=== PATIENT | female | born 1950 | race Caucasian/White ===

== ENCOUNTER → 2020-02-16 | Outpatient (CLI) | payer BC, MEDICARE, SELFPAY ==
--- NOTE | 2020-02-16 16:56 | REP ---
HISTORY: Shoulder pain. COMPARISON: None. There is a mottled/permeative appearance to the proximal humerus. Chronic changes seen involving the glenohumeral and acromioclavicular joints. IMPRESSION: Permeative type appearance to the proximal humerus. Etiology uncertain. Pre- and post gadolinium enhanced MRI examination to include at least all of the mid to proximal left humerus is recommended. Electronically Signed by Silver Curry DO 02/16/2020 05:38 P
== END ==
LOC: M WUC 12:18
PROVIDERS: ATTEND Nurse Practitioner Adult Health
DX: M75.92 Shoulder lesion, unspecified, left shoulder (principal)

== ENCOUNTER → 2021-09-13 | Outpatient (CLI) | payer MEDICARE ==
[~2021-09-13] MED LIST: ACET1TAB55 PO; PROAAER10 INH; VITMTA PO
== END ==
LOC: M LABSMTC 09:58
PROVIDERS: ATTEND Anesthesiology
DX: Z01.812 Encounter for preprocedural laboratory examination (principal); Z20.822 Contact with and (suspected) exposure to COVID-19

== ENCOUNTER 2021-09-18 11:23 | Day surgery (SDC) | payer MEDICARE ==
[~2021-09-18] VITALS: Ht 154.9 cm; Wt 54.5 kg
[~2021-09-18 11:23] MED LIST changes: +CYCLOPENTOLATE 1% OPHTH SOLN 2 ML BTL OD SCH; +DUOVISC (0.50ML VISCOAT/0.85ML PROVISC) OPHTH KIT As Ordered ONE; +FLURBIPROFEN 0.03% OPHTH SOLN 2.5 ML OD SCH; +LIDOCAINE 1% SDV 5ML VIAL As Ordered ONE; +LR 1,000 ML IV SCH; +MAXITROL OPHTH SUSP 5 ML As Ordered ONE; +MIDAZOLAM INJ 2MG/2ML VIAL (J2250 PER 1MG) As Ordered ONE; +PHENYLEPHRINE 2.5% OPHTH SOL 2ML OD SCH; +TETRACAINE 0.5% OPHTH SOLN 4ML OD SCH; +fentaNYL 100 MCG/2 ML INJECTION (J3010) As Ordered ONE
[2021-09-18 14:25] VITALS: BP 164/71
--- NOTE | 2021-09-18 16:02 | ROOPDOC ---
[facility] Report Of Operation Report of Operation DATE OF PROCEDURE: 09/18/21 PREPROCEDURE DIAGNOSES: Cataract right eye. POSTPROCEDURE DIAGNOSES: Same. PROCEDURE PERFORMED: Cataract extraction with intraocular lens implantation right eye. SURGEON: Chao Degroot MD ELEMENT[employer] VOCAL MUSIC TEACHER: None ANESTHESIA: Local ESTIMATED BLOOD LOSS: None. COMPLICATIONS: None. SPECIMENS REMOVED: None DESCRIPTION OF PROCEDURE: The patient was brought to the operating room and prepped and draped in the usual sterile fashion and an eyelid speculum was inserted in the right eye. A paracentesis was made and the anterior chamber was inflated with non-preserved lidocaine. This was followed by injection of Viscoat. A groove was made in the temporal clear cornea which was tunneled forward with the crescent blade and the anterior chamber was entered with a 2.75 keratome. The cystotome was used to make an incision in the center of the capsule and a continuous curvilinear capsulorhexis was created. The lens was hydrodissected until it was found to rotate freely within the capsular bag. Phacoemulsification was then used to remove the lens in its entirety. Irrigation and aspiration were used to remove residual cortical material. The anterior chamber and capsular bag were reinflated with Provisc and a 18.5 diopter SN60AT lens was injected into the capsular bag using the Inman injector. The lens was dialed into place using the Sinskey hook. Irrigation and aspiration were used to remove residual viscoelastic. The wound was stromally hydrated until was found to be watertight and the eye was in an appropriate pressure. The eyelid speculum was removed from the eye and Maxitrol drops were placed over the right eye. The patient was transferred to the recovery room in stable condition and will follow up tomorrow. The total CDE was 12.31. CHAO DEGROOT MD Sep 18, 2021 16:02
== END 2021-09-18 14:26 | disposition home or self-care (01) ==
LOC: M SDC 11:23
PROVIDERS: ATTEND Ophthalmology
DX: H25.11 Age-related nuclear cataract, right eye (principal)
CPT/HCPCS: 66984; J2250; J3010; V2632

== ENCOUNTER → 2022-03-16 | Outpatient (CLI) | payer MEDICARE ==
[~2022-03-16] MED LIST changes: -CYCLOPENTOLATE 1% OPHTH SOLN 2 ML BTL OD SCH; -DUOVISC (0.50ML VISCOAT/0.85ML PROVISC) OPHTH KIT As Ordered ONE; -FLURBIPROFEN 0.03% OPHTH SOLN 2.5 ML OD SCH; -LIDOCAINE 1% SDV 5ML VIAL As Ordered ONE; -LR 1,000 ML IV SCH; -MAXITROL OPHTH SUSP 5 ML As Ordered ONE; -MIDAZOLAM INJ 2MG/2ML VIAL (J2250 PER 1MG) As Ordered ONE; -PHENYLEPHRINE 2.5% OPHTH SOL 2ML OD SCH; -TETRACAINE 0.5% OPHTH SOLN 4ML OD SCH; -fentaNYL 100 MCG/2 ML INJECTION (J3010) As Ordered ONE
== END ==
LOC: M WUC 10:31
PROVIDERS: ATTEND Nurse Practitioner Family
DX: Z01.811 Encounter for preprocedural respiratory examination (principal)

== ENCOUNTER → 2022-04-06 | Outpatient (CLI) | payer MEDICARE ==
[~2022-04-06] MED LIST changes: +BREO1INH3 INH
== END ==
LOC: M LABSMTC 09:28
PROVIDERS: ATTEND Anesthesiology
DX: Z01.812 Encounter for preprocedural laboratory examination (principal)

== ENCOUNTER 2022-04-09 11:53 | Day surgery (SDC) | payer MEDICARE ==
[~2022-04-09] VITALS: Ht 154.9 cm; Wt 53.9 kg
[~2022-04-09 11:53] MED LIST changes: +LIDOCAINE 1% SDV 5ML VIAL As Ordered ONE; +LR 1,000 ML IV SCH; +MAXITROL OPHTH SUSP 5 ML As Ordered ONE
[2022-04-09] MEDS ORDERED: fentaNYL 100 MCG/2 ML INJECTION As Ordered ONE (12:52)
[2022-04-09] MEDS ORDERED: MIDAZOLAM INJ 2MG/2ML VIAL (J2250 PER 1MG) As Ordered ONE (12:52)
[2022-04-09] MEDS: TETRACAINE 0.5% OPHTH SOLN 4ML OS SCH ×2 (12:59→13:01)
[2022-04-09] MEDS: FLURBIPROFEN 0.03% OPHTH SOLN 2.5 ML OS SCH ×3 (13:01→13:25)
[2022-04-09] MEDS: PHENYLEPHRINE 2.5% OPHTH SOL 2ML OS SCH ×3 (13:02→13:25)
[2022-04-09] MEDS: CYCLOPENTOLATE 1% OPHTH SOLN 2 ML BTL OS SCH ×3 (13:02→13:25)
[2022-04-09 15:47] VITALS: BP 167/81
== END 2022-04-09 15:50 | disposition home or self-care (01) ==
LOC: M SDC 11:53
PROVIDERS: ATTEND Ophthalmology
DX: H25.12 Age-related nuclear cataract, left eye (principal); J44.9 Chronic obstructive pulmonary disease, unspecified; F17.210 Nicotine dependence, cigarettes, uncomplicated; Z79.51 Long term (current) use of inhaled steroids; Z79.899 Other long term (current) drug therapy
CPT/HCPCS: 66984; J2250; J3010; V2632

== ENCOUNTER → 2024-06-29 | Outpatient (CLI) | payer MEDICARE ==
[~2024-06-29] MED LIST changes: -LIDOCAINE 1% SDV 5ML VIAL As Ordered ONE; -LR 1,000 ML IV SCH; -MAXITROL OPHTH SUSP 5 ML As Ordered ONE
== END ==
LOC: M PLAIMG 09:56
PROVIDERS: ATTEND Internal Medicine
DX: R91.1 Solitary pulmonary nodule (principal); J43.9 Emphysema, unspecified

== ENCOUNTER → 2024-07-06 | Outpatient (REF) | payer MEDICARE | LOC: M LAB REF 13:36 | PROVIDERS: ATTEND Internal Medicine | DX: R93.89 Abnormal findings on diagnostic imaging of other specified body structures (principal); J44.9 Chronic obstructive pulmonary disease, unspecified; R97.0 Elevated carcinoembryonic antigen [CEA] ==

== ENCOUNTER → 2024-08-01 | Outpatient (CLI) | payer MEDICARE | LOC: M PLARAD 09:54 | PROVIDERS: ATTEND Internal Medicine | DX: R91.1 Solitary pulmonary nodule (principal) | CPT/HCPCS: 78815; A9552 ==

== ENCOUNTER → 2024-09-05 | Outpatient (REF) | payer MEDICARE ==
[2024-09-05 18:25] LABS: INR 0.9; PARTIAL THROMBOPLASTIN TIME 27.6 SECONDS (24.8-34.2); PROTHROMBIN TIME 12.5 SECONDS (12.5-14.5)
== END ==
LOC: M LAB REF 17:33
PROVIDERS: ATTEND Internal Medicine
DX: Z01.812 Encounter for preprocedural laboratory examination (principal); Z79.01 Long term (current) use of anticoagulants

== ENCOUNTER → 2024-09-08 | Outpatient (CLI) | payer MEDICARE ==
[~2024-09-08] MED LIST changes: +ALBU8.5H INH; +NICO21DI37 TD; +RA N1TAB PO; +SERT25TA21 PO; +THERTAB52 PO; +TREL1AER INH
== END ==
LOC: M PLAIMG 09:48
PROVIDERS: ATTEND Internal Medicine Pulmonary Disease
DX: R91.8 Other nonspecific abnormal finding of lung field (principal); J44.9 Chronic obstructive pulmonary disease, unspecified

== ENCOUNTER 2024-09-13 06:53 | Day surgery (SDC) | payer MEDICARE ==
[~2024-09-13] VITALS: Ht 154.9 cm; Wt 43.5 kg
[2024-09-13] MEDS ORDERED: NS 250 ML IV SCH ×2 (07:55→10:25)
[2024-09-13] MEDS ORDERED: ROCURONIUM BROMIDE 50MG/5ML VIAL As Ordered ONE (08:08)
[2024-09-13] MEDS ORDERED: propofoL 200 MG/20 ML VIAL As Ordered ONE (08:08)
[2024-09-13] MEDS ORDERED: fentaNYL 100 MCG/2 ML INJECTION As Ordered ONE (08:08)
[2024-09-13] MEDS ORDERED: SUGAMMADEX SODIUM 500 MG/5 ML VIAL (BRIDION) As Ordered ONE (08:08)
[2024-09-13] MEDS ORDERED: LIDOCAINE 2% 100MG/5ML SDV (FOR ANES.) As Ordered ONE (08:08)
[2024-09-13] MEDS ORDERED: ONDANSETRON 4MG 2ML VIAL As Ordered ONE (08:08)
[2024-09-13] MEDS: LIDOCAINE PRES-FREE 2% 10ML AMP INH ONE (08:39)
[2024-09-13] MEDS: ALBUTEROL SULFATE 2.5MG/0.5ML INH NEB SOLN INH ONE ×2 (08:39→12:38)
[2024-09-13] MEDS ORDERED: ACETAMINOPHEN 1000MG/100ML IV BAG As Ordered ONE (08:55)
[2024-09-13] MEDS ORDERED: MIDAZOLAM INJ 2MG/2ML VIAL As Ordered ONE (08:56)
[2024-09-13] MEDS: CETACAINE SPRAY 5GM As Ordered ONE (09:21)
[2024-09-13] MEDS ORDERED: ePHEDrine SULFATE 25 MG/5 ML(5MG/ML) SYRINGE As Ordered ONE (09:22)
[2024-09-13] MEDS ORDERED: PHENYLephrine 500MCG 5ML (100MCG/ML) SYRINGE As Ordered ONE (09:22)
[2024-09-13] MEDS: EPINEPHrine 1MG/10ML SYRINGE 1.5IN As Ordered ONE (09:45)
[2024-09-13] MEDS ORDERED: oxyCODONE 5MG TAB PO PRN (10:25)
[2024-09-13] MEDS ORDERED: fentaNYL 100 MCG/2 ML INJECTION IV PRN (10:25)
[2024-09-13] MEDS ORDERED: HYDROMORPHONE HCL 0.5 MG/ 0.5 ML SYRINGE IV PRN (10:25)
[2024-09-13] MEDS ORDERED: ONDANSETRON 4MG 2ML VIAL IV PRN (10:25)
[2024-09-13] MEDS: LEVALBUTEROL 1.25MG 0.5ML CONCENTRATE NEB INH ONE (11:45)
[2024-09-13 12:05] VITALS: BP 133/60; TEMP 97.9
[2024-09-13 12:28] VITALS: O2SAT 95
== END 2024-09-13 12:40 | disposition home or self-care (01) ==
LOC: M SDC 06:53
PROVIDERS: ATTEND Internal Medicine Pulmonary Disease
DX: C34.11 Malignant neoplasm of upper lobe, right bronchus or lung (principal); J44.9 Chronic obstructive pulmonary disease, unspecified; Z87.891 Personal history of nicotine dependence; Z79.51 Long term (current) use of inhaled steroids; Z79.899 Other long term (current) drug therapy
CPT/HCPCS: 31623; 31624; 31625; 31627; 31629; 31654; 71045; 76000; 88104; 88108; 88173; 88305; 88313; 93005; C1601; J0131; J0171; J1100; J2250; J2371; J2405; J3010; S2900

== ENCOUNTER → 2024-09-26 | Outpatient (REF) | payer MEDICARE | LOC: M LAB REF 12:47 | PROVIDERS: ATTEND Internal Medicine Pulmonary Disease | DX: J44.9 Chronic obstructive pulmonary disease, unspecified (principal) ==

== ENCOUNTER → 2024-10-02 | Outpatient (CLI) | payer MEDICARE | LOC: M ONCR 13:58 | PROVIDERS: ATTEND General Practice | DX: C34.11 Malignant neoplasm of upper lobe, right bronchus or lung (principal); Z87.891 Personal history of nicotine dependence; Z79.899 Other long term (current) drug therapy; Z79.51 Long term (current) use of inhaled steroids ==

== ENCOUNTER → 2024-12-01 | Outpatient (RCR) | payer MEDICARE | LOC: M ONCR 11-06 10:52 | PROVIDERS: ATTEND General Practice | DX: Z51.0 Encounter for antineoplastic radiation therapy (principal); C34.11 Malignant neoplasm of upper lobe, right bronchus or lung ==

== ENCOUNTER → 2025-02-21 | Outpatient (CLI) | payer MEDICARE ==
[~2025-02-21] MED LIST changes: +ISOVUE-370 76% 100ML VIAL As Ordered ONE
== END ==
LOC: M RAD 09:39
PROVIDERS: ATTEND General Practice
DX: C34.90 Malignant neoplasm of unspecified part of unspecified bronchus or lung (principal)
CPT/HCPCS: 71260; Q9967

== ENCOUNTER → 2025-02-28 | Outpatient (CLI) | payer MEDICARE ==
[~2025-02-28] MED LIST changes: -ISOVUE-370 76% 100ML VIAL As Ordered ONE
== END ==
LOC: M ONCR 08:39
PROVIDERS: ATTEND General Practice
DX: C34.11 Malignant neoplasm of upper lobe, right bronchus or lung (principal); N28.89 Other specified disorders of kidney and ureter; Z79.51 Long term (current) use of inhaled steroids; Z79.899 Other long term (current) drug therapy; Z87.891 Personal history of nicotine dependence; Z92.3 Personal history of irradiation

== ENCOUNTER → 2025-07-18 | Outpatient (REF) | payer MEDICARE, MEDICAID | LOC: M LAB REF 11:55 | PROVIDERS: ATTEND Internal Medicine | DX: J47.9 Bronchiectasis, uncomplicated (principal); J44.9 Chronic obstructive pulmonary disease, unspecified; C34.90 Malignant neoplasm of unspecified part of unspecified bronchus or lung ==

== ENCOUNTER → 2025-07-31 | Outpatient (CLI) | payer MEDICARE ==
[~2025-07-31] MED LIST changes: +GASTROGRAFIN SOLUTION 30 ML ONE; +ISOVUE-370 76% 100 ML VIAL ONE
== END ==
LOC: M PLAIMG 13:28
PROVIDERS: ATTEND Internal Medicine
DX: K40.90 Unilateral inguinal hernia, without obstruction or gangrene, not specified as recurrent (principal); R10.13 Epigastric pain
CPT/HCPCS: 74177; Q9963; Q9967

== ENCOUNTER → 2025-08-22 | Outpatient (CLI) | payer MEDICARE ==
[~2025-08-22] MED LIST changes: -GASTROGRAFIN SOLUTION 30 ML ONE; -ISOVUE-370 76% 100 ML VIAL ONE
== END ==
LOC: M PLAIMG 11:44
PROVIDERS: ATTEND General Practice
DX: C34.11 Malignant neoplasm of upper lobe, right bronchus or lung (principal); I51.7 Cardiomegaly; N20.0 Calculus of kidney; I70.0 Atherosclerosis of aorta; N28.1 Cyst of kidney, acquired

== ENCOUNTER → 2025-08-30 | Outpatient (CLI) | payer MEDICARE | LOC: M ONCR 14:09 | PROVIDERS: ATTEND General Practice | DX: Z08 Encounter for follow-up examination after completed treatment for malignant neoplasm (principal); Z85.118 Personal history of other malignant neoplasm of bronchus and lung; J44.1 Chronic obstructive pulmonary disease with (acute) exacerbation; Z87.891 Personal history of nicotine dependence; Z79.51 Long term (current) use of inhaled steroids; Z79.899 Other long term (current) drug therapy; Z92.3 Personal history of irradiation ==

== ENCOUNTER 2025-09-09 14:47 | Observation (INO) | payer MEDICARE ==
[~2025-09-09] VITALS: Ht 157.5 cm; Wt 41.7 kg
[~2025-09-09 14:47] MED LIST changes: +LEVO1TAB40 PO
[2025-09-09 15:22] LABS: BASO # 0.0 10^3/uL (0.0-0.2); BASO % 0.3 % (0.0-1.0); EOS # 0.0 10^3/uL (0.0-0.5); EOS % 0.2 % (0.0-3.0); LYMPH # 1.0 10^3/uL (1.5-5.0); LYMPH % 11.2 % (24.0-44.0); MONO # 0.7 10^3/uL (0.0-0.8); MONO % 8.2 % (2.0-8.0); NEUTROPHILS # 6.8 10^3/uL (1.5-8.5); NEUTROPHILS % 79.8 % (36.0-66.0); PLATELET COUNT, AUTOMATED 373 10^3/uL (150-450)
[2025-09-09 15:35] LABS: ABG BASE EXCESS 1.2 (-2.0-2.0); ABG HCO3 25.1 MMOL/L (22.0-26.0); ABG O2 SATURATION 93.4 % (95.0-99.0); ABG PARTIAL PRESSURE CO2 37.3 mmHg (35.0-45.0); ABG PARTIAL PRESSURE O2 63.7 mmHg (75.0-100.0); ABG STANDARD HCO3 25.4 MMOL/L. (22.0-26.0); ABG TOTAL CO2 26.2 MMOL/L (23.0-31.0); ABG pH (ARTERIAL) 7.445 UNITS (7.350-7.450)
[2025-09-09 15:52] LABS: CALCIUM LEVEL 9.1 MG/DL (8.3-10.6); CARBON DIOXIDE LEVEL 27.0 MMOL/L (20-31); CHLORIDE LEVEL 100.0 MMOL/L (98-107); CREATININE FOR GFR 0.83 MG/DL (0.55-1.30); GLOMERULAR FILTRATION RATE 73.0 (>39); POTASSIUM SERUM 4.1 MMOL/L (3.5-5.1); SODIUM LEVEL 138.0 MMOL/L (136-145)
[2025-09-09] MEDS: IPRATROPIUM 0.5 MG/ALBUTEROL 2.5 MG INH SOL UD 3 ML NEB PRN ×2 (16:18→22:04)
[2025-09-09] MEDS ORDERED: ISOVUE-370 76% 100 ML VIAL As Ordered ONE (17:49)
[2025-09-09] MEDS ORDERED: MORPHINE 10 MG/0.5 ML ORAL CONCENTRATE SOLUTION U/D SL PRN (19:30)
[2025-09-09] MEDS ORDERED: MOM 30 ML SUSPENSION UDC PO PRN (19:30)
[2025-09-09] MEDS ORDERED: ACETAMINOPHEN 325 MG TAB PO PRN (19:30)
[2025-09-09] MEDS ORDERED: ONDANSETRON 4MG/2ML VIAL IV PRN (19:30)
[2025-09-09] MEDS: IPRATROPIUM 0.5 MG/ALBUTEROL 2.5 MG INH SOL UD 3 ML NEB SCH (20:22)
[2025-09-09 21:00] VITALS: BP 138/82; TEMP 97.1; O2SAT 98
[2025-09-09] MEDS: DOXYCYCLINE HYCLATE 100 MG in DEXTROSE 5% (D5W) MINI-BAG PLU 100 ML IV SCH (22:44)
[2025-09-10] VITALS (22 sets, daily range): BP systolic 103–130; BP diastolic 59–72; TEMP 97.4–98.4; O2SAT 88–95
[2025-09-10] MEDS ORDERED: IPRA0.00 INH (01:40)
[2025-09-10] MEDS ORDERED: HOME MED LIST COMPLETE! XX SCH (01:40)
[2025-09-10] MEDS ORDERED: BENA25CA4 PO (01:40)
[2025-09-10 05:31] LABS: PLATELET COUNT, AUTOMATED 352 10^3/uL (150-450)
[2025-09-10 05:54] LABS: ALT/SGPT 19.0 U/L (7.0-40); AST/SGOT 22.0 U/L (<34); CALCIUM LEVEL 9.0 MG/DL (8.3-10.6); CARBON DIOXIDE LEVEL 25.0 MMOL/L (20-31); CHLORIDE LEVEL 104.0 MMOL/L (98-107); CREATININE FOR GFR 0.73 MG/DL (0.55-1.30); GLOMERULAR FILTRATION RATE 85.2 (>39); MAGNESIUM LEVEL 2.0 MG/DL (1.8-2.4); POTASSIUM SERUM 4.2 MMOL/L (3.5-5.1); SODIUM LEVEL 139.0 MMOL/L (136-145)
[2025-09-10] MEDS: BUDESONIDE 0.5 MG/2 ML INHALATION SUSPENSION NEB SCH (07:30)
[2025-09-10] MEDS: GLYCOPYRROLATE INJ 0.2 MG/ML 2 ML VIAL NEB SCH (07:40)
[2025-09-10] MEDS: ALPRAZolam 0.25 MG TAB PO ONE (09:37)
[2025-09-10] MEDS: PANTOPRAZOLE 40MG TAB PO SCH (09:37)
[2025-09-10] MEDS: DOXYCYCLINE HYCLATE 100 MG TABLET PO SCH (09:38)
[2025-09-10] MEDS: ENOXAPARIN 30 MG/0.3 ML SYRINGE (J1650 PER 10MG) SC SCH (09:38)
[2025-09-11] VITALS (16 sets, daily range): BP systolic 125–137; BP diastolic 60–76; TEMP 97.4–98.9; O2SAT 89–97
[2025-09-11 06:00] LABS: CALCIUM LEVEL 9.0 MG/DL (8.3-10.6); CARBON DIOXIDE LEVEL 27.0 MMOL/L (20-31); CHLORIDE LEVEL 105.0 MMOL/L (98-107); CREATININE FOR GFR 0.83 MG/DL (0.55-1.30); GLOMERULAR FILTRATION RATE 73.0 (>39); MAGNESIUM LEVEL 2.1 MG/DL (1.8-2.4); POTASSIUM SERUM 4.6 MMOL/L (3.5-5.1); SODIUM LEVEL 140.0 MMOL/L (136-145)
[2025-09-11] MEDS: ALPRAZolam 0.25 MG TAB PO PRN (09:01)
[2025-09-11] MEDS ORDERED: DOXY100T PO (14:29)
[2025-09-11] MEDS ORDERED: HYDR-3363 PO (14:29)
[2025-09-11] MEDS ORDERED: PRED20TA PO (14:29)
== END 2025-09-11 16:00 | disposition home or self-care (01) ==
LOC: M ED 14:47 → EDBD 14:47 → M ED INP 14:48 → M PCU 20:50
PROVIDERS: ADMIT Internal Medicine; ATTEND Internal Medicine
DX: J96.01 Acute respiratory failure with hypoxia (principal); J44.1 Chronic obstructive pulmonary disease with (acute) exacerbation; R06.09 Other forms of dyspnea; F41.9 Anxiety disorder, unspecified; Z85.118 Personal history of other malignant neoplasm of bronchus and lung; Z92.3 Personal history of irradiation; Z79.2 Long term (current) use of antibiotics; Z79.52 Long term (current) use of systemic steroids; Z79.899 Other long term (current) drug therapy
CPT/HCPCS: 36415; 36600; 71045; 71275; 80048; 80053; 82803; 83605; 83735; 85025; 85027; 87040; 87486; 87581; 87633; 87798; 93005; 93041; 94640; 94760; 96365; 96372; 96375; 96376; 97161; 99285; G0378; J1271; J1596; J1650; J2919; Q9967